=== PATIENT | female | born 1950 | race Caucasian/White ===

== ENCOUNTER → 2018-01-19 | Outpatient (CLI) | payer OTHER ==
--- NOTE | 2018-01-19 12:36 | Diagnostic Imaging Report ---
PROCEDURE: CT ABDOMEN WITHOUT CONTRAST TECHNIQUE: The abdomen was scanned utilizing a multidetector helical scanner from the diaphragm to the iliac crest. No IV contrast was administered because adrenal protocol. Coronal and sagittal multiplanar reformations were obtained. DLP: 164.71 mGy-cm COMPARISON: None. INDICATIONS: NEOPLASM OF ADRENAL GLAND FINDINGS: ABSENCE OF INTRAVENOUS CONTRAST DECREASES SENSITIVITY FOR DETECTION OF FOCAL LESIONS AND VASCULAR PATHOLOGY. LOWER THORAX: Left basilar groundglass opacities and adjacent more focal consolidation. HEPATOBILIARY: No focal hepatic lesions. No biliary ductal dilatation. SPLEEN: No splenomegaly. PANCREAS: No focal masses or ductal dilatation. ADRENALS: Right adrenal 1 x 1.2 cm nodules in the inferior aspect of the lateral limb with density compatible with a lipid rich adenoma. No left adrenal nodules. KIDNEYS: No hydronephrosis, stones, or solid mass lesions. PERITONEUM / RETROPERITONEUM: No free air or fluid. LYMPH NODES: No lymphadenopathy. VESSELS: Mild atherosclerotic calcifications. No abdominal aortic aneurysm. GI TRACT: Visualized portions of the bowel demonstrate no distention or wall thickening. BONES AND SOFT TISSUES: Mild degenerative changes of the spine. IMPRESSION: 1. Right adrenal 1.2 cm nodule is compatible with a benign adenoma. 2. Left lower lobe small consolidation and adjacent ground glass opacities are likely infectious or inflammatory in etiology. Dictated by: Wilbert Morgan M.D. on 01/19/2018 at 12:37 Electronically approved by: Wilbert Morgan M.D. on 01/19/2018 at 12:37
== END ==
LOC: CT 09:25
PROVIDERS: ATTEND Urology
DX: D44.10 Neoplasm of uncertain behavior of unspecified adrenal gland (principal)
CPT/HCPCS: 74150